=== PATIENT | female | born 1995 | race Two or more races ===

== ENCOUNTER 2017-05-02 19:17 | Emergency (ER) | payer OTHER ==
[~2017-05-02] VITALS: Ht 152.4 cm; Wt 79.5 kg
[2017-05-02] MEDS ORDERED: PRENTAB31 PO (19:28)
[2017-05-02] MEDS ORDERED: NS 1,000 ML IV ONE (22:30)
[2017-05-02] MEDS ORDERED: METOCLOPRAMIDE INJ 10MG/2ML VIAL (J2765) IV ONE (22:30)
[2017-05-02 22:58] LABS: BASO % 0.2 % (0.0-1.0); EOS % 0.5 % (0.0-3.0); LARGE UNSTAINED CELL # 0.1 K/mm3 (0.0-0.4); LARGE UNSTAINED CELL % 1.1 % (0.0-4.0); LYMPH # 1.4 K/mm3 (1.5-6.5); LYMPH % 14.2 % (24.0-44.0); MEAN CORPUSCULAR HEMOGLOBIN 26.9 pg (27.0-33.0); MEAN CORPUSCULAR HGB CONC 32.9 g/dl (32.0-36.5); MEAN CORPUSCULAR VOLUME 81.7 fl (80.0-96.0); MONO # 0.2 K/mm3 (0.0-0.8); MONO % 2.4 % (0.0-5.0); NEUTROPHILS # 7.8 K/mm3 (1.8-7.7); NEUTROPHILS % 81.6 % (36.0-66.0); PLATELET COUNT, AUTOMATED 239 k/mm3 (150-450); RED CELL DISTRIBUTION WIDTH 13.4 % (11.5-14.5); WHITE BLOOD COUNT 9.5 K/mm3 (4.0-10.0)
[2017-05-02 23:11] LABS: AMYLASE 68 U/L (25-115); ANION GAP 7 MEQ/L (8-16); BLOOD UREA NITROGEN 5 MG/DL (7-18); CALCIUM LEVEL 8.7 MG/DL (8.5-10.1); CARBON DIOXIDE LEVEL 26 MEQ/L (21-32); CHLORIDE LEVEL 106 MEQ/L (98-107); CREATININE FOR GFR 0.52 MG/DL (0.55-1.02); GLOMERULAR FILTRATION RATE > 60.0 (>60); GLUCOSE, FASTING 84 MG/DL (70-105); POTASSIUM SERUM 3.9 MEQ/L (3.5-5.1); SODIUM LEVEL 139 MEQ/L (136-145)
[2017-05-02] MEDS ORDERED: REGL10TA6 PO (23:21)
[2017-05-02 23:33] VITALS: BP 122/78
== END 2017-05-02 23:34 | disposition home or self-care (01) ==
LOC: M ED 19:17
DX: O21.9 Vomiting of pregnancy, unspecified (principal); Z3A.15 15 weeks gestation of pregnancy
CPT/HCPCS: 80048; 82150; 83690; 85025; 87086; 99284; J2765

== ENCOUNTER 2017-10-25 14:33 | Inpatient (IN) | payer OTHER ==
[2017-10-25] MEDS: LACTATED RINGER'S 1000 ML IV (15:13)
[2017-10-25 15:21] LABS: HEMATOCRIT 34.6 % (36.0-47.0); HEMOGLOBIN 10.9 g/dl (12.0-16.0); MEAN CORPUSCULAR HEMOGLOBIN 24.4 pg (27.0-33.0); MEAN CORPUSCULAR HGB CONC 31.5 g/dl (32.0-36.5); MEAN CORPUSCULAR VOLUME 77.6 fl (80.0-96.0); PLATELET COUNT, AUTOMATED 301 10^3/uL (150-450); RED BLOOD COUNT 4.46 10^6/uL (4.00-5.40); RED CELL DISTRIBUTION WIDTH 16.5 % (11.5-14.5); WHITE BLOOD COUNT 13.6 10^3/uL (4.0-10.0)
[2017-10-25 15:37] LABS: AMPHETAMINES URINE REFLEX NEGATIVE (NEGATIVE); BARBITURATES URINE REFLEX NEGATIVE (NEGATIVE); BENZODIAZEPINES URINE REFLEX NEGATIVE (NEGATIVE); CANNABINOIDS URINE REFLEX NEGATIVE (NEGATIVE); COCAINE METABOLITE URINE REFLE NEGATIVE (NEGATIVE); METHADONE URINE REFLEX NEGATIVE (NEGATIVE); OPIATES URINE REFLEX NEGATIVE (NEGATIVE); PHENCYCLIDINE URINE REFLEX NEGATIVE (NEGATIVE)
[2017-10-25] MEDS ORDERED: FENTANYL 2MCG/ML ROPIVACAINE 0.2% IN 0.9% NACL 200ML IVBAG As Ordered (15:58)
[2017-10-25] MEDS: LR 1,000 ML IV ×3 (16:05→22:14)
[2017-10-25] MEDS ORDERED: FENTANYL/ROPIVACAINE/NACL BAG 200 ML EPIDURAL ×2 (17:00)
[2017-10-25] MEDS ORDERED: NALOXONE INJ 0.4 MG/1 ML VIAL (J2310) IV ×2 (17:00)
[2017-10-25] MEDS ORDERED: LACTATED RINGER'S 1000 ML IV ×2 (17:00)
[2017-10-25] MEDS ORDERED: EPIDURAL COMMENT XX ×2 (17:00)
[2017-10-25] MEDS ORDERED: diphenhydrAMINE INJ 50MG/ML VIAL (J1200) IV ×2 (17:00)
[2017-10-25] MEDS ORDERED: ONDANSETRON 4MG/2ML VIAL (J2405) IV ×2 (17:00)
[2017-10-25] MEDS ORDERED: REFRIGERATOR IV KEYS XX ×2 (17:00)
[2017-10-25] MEDS ORDERED: ePHEDrine SULFATE 25 MG/5 ML(5MG/ML) SYRINGE IV ×2 (17:00)
[2017-10-25] MEDS ORDERED: EPIDURAL/PCA KEYS XX ×2 (17:00)
[2017-10-25] MEDS: OXYTOCIN DRIP 30 UNITS in APPROPRIATE DILUENT 1 EA IV (19:23)
[2017-10-26] MEDS: LR 1,000 ML IV ×2 (02:59→22:58)
[2017-10-26] MEDS ORDERED: RHOGAM 300 MCG (1500 IU) INJ (J2790) IM (05:30)
[2017-10-26] MEDS ORDERED: ACETAMINOPHEN 500 MG TAB PO (05:30)
[2017-10-26] MEDS ORDERED: DOCUSATE SODIUM 100 MG CAP PO (05:30)
[2017-10-26] MEDS ORDERED: DIBUCAINE 1% OINTMENT 30GM TOP (05:30)
[2017-10-26] MEDS ORDERED: MEASLES,MUMPS,RUBELLA VACCINE INJ (MMR-II) (90707) SC (05:30)
[2017-10-26] MEDS: PRENATAL VITAMINS CHEWABLE TABLET PO (09:07)
[2017-10-26] MEDS: IBUPROFEN 800 MG TAB PO (10:03)
[2017-10-26] MEDS: OXYTOCIN DRIP 30 UNITS in APPROPRIATE DILUENT 1 EA IV (19:26)
[2017-10-27] MEDS: IBUPROFEN 800 MG TAB PO (00:34)
[2017-10-27] MEDS ORDERED: IBUPROFEN 800 MG TAB As Ordered (00:35)
[2017-10-27] MEDS: LR 1,000 ML IV (06:58)
[2017-10-27] MEDS: PRENATAL VITAMINS CHEWABLE TABLET PO (08:12)
== END 2017-10-27 12:40 | disposition home or self-care (01) | DRG 767 ==
LOC: M LDI 14:33 → M OBS 10-26 07:07
PROVIDERS: Obstetrics & Gynecology
PROC: 10907ZC Drainage of Amniotic Fluid, Therapeutic from Products of Conception, Via Natural or Artificial Opening (ICD-10-PCS; 2017-10-25)
PROC: 10D17Z9 Manual Extraction of Products of Conception, Retained, Via Natural or Artificial Opening (ICD-10-PCS; principal; 2017-10-26)
PROC: 10E0XZZ Delivery of Products of Conception, External Approach (ICD-10-PCS; 2017-10-26)
PROC: 0HQ9XZZ Repair Perineum Skin, External Approach (ICD-10-PCS; 2017-10-26)
DX: O99.214 Obesity complicating childbirth (principal); Z68.41 Body mass index [BMI] 40.0-44.9, adult; O73.1 Retained portions of placenta and membranes, without hemorrhage; Z3A.40 40 weeks gestation of pregnancy; O77.0 Labor and delivery complicated by meconium in amniotic fluid; E66.9 Obesity, unspecified; O69.1XX0 Labor and delivery complicated by cord around neck, with compression, not applicable or unspecified; O70.0 First degree perineal laceration during delivery; Z37.0 Single live birth